=== PATIENT | female | born 1965 | race Caucasian/White ===

== ENCOUNTER 2016-05-23 09:52 | Emergency (ER) | payer BC, MEDICAID ==
[~2016-05-23] VITALS: Ht 167.6 cm; Wt 80.5 kg
[~2016-05-23 09:52] MED LIST: ALBU2.5V7 INH; ALBU8.5H INH; CITA40TA6 PO; IBUP-1724 PO; PRED10TA PO; TIOT18CA3 INH
--- OUTSIDE RECORDS SUMMARY | 2016-05-23 09:56 | XMS REPORT | Continuity of Care Document ---
Author Author [facility] Organization [facility] Address Unknown Phone Unavailable Allergies Active Description Code Type Severity Reaction Onset Reported/Identified Relationship to Patient Clinical Status Yes No Known Drug Intolerances No Known Drug Intolerances Drug Allergy Unknown N/A 11/02/2008 Yes No Allergy Information Drug Allergy N/A N/A 12/02/2012 Yes No Known Allergies Drug Allergy N/A N/A 03/10/2013 Yes No Known Drug Allergies Drug Allergy N/A N/A 03/10/2013 Yes No Known Food Allergies Food Allergy N/A N/A 03/10/2013 Yes No Known Allergies No Known Allergies Drug Allergy Unknown N/A 09/08/2013 Medications Problems Date Dx Coded Attending Type Code Diagnosis Diagnosed By 12/31/2011 Final 382.9 OTITIS MEDIA NOS 12/31/2011 Admitting 388.70 OTALGIA NOS 09/15/2012 Sinan Kang MD Final 311 DEPRESSIVE DISORDER NEC 09/15/2012 Sinan Kang MD Final 521.09 DENTAL CARIES NEC 09/15/2012 Sinan Kang MD Final 522.5 PERIAPICAL ABSCESS 09/15/2012 Sinan Kang MD Final 523.10 CHR GINGIV-PLAQUE IND 09/15/2012 Sinan Kang MD Admitting 525.9 DENTAL DISORDER NOS 11/25/2012 Robert Huff MD Admitting 719.45 JOINT PAIN-PELVIS 11/25/2012 Robert Huff MD Final 726.5 HIP ENTHESOPATHY 03/10/2013 Maxi Cabrera MD Final 070.54 CHR VH C W/O COMA 03/10/2013 Maxi Cabrera MD Final 276.1 HYPOSMOLALITY 03/10/2013 Maxi Cabrera MD Final 276.8 HYPOPOTASSEMIA 03/10/2013 Maxi Cabrera MD Final 300.00 ANXIETY STATE NOS 03/10/2013 Maxi Cabrera MD Final 305.70 AMPHETAMINE ABUSE-UNSPEC 03/10/2013 Maxi Cabrera MD Final 311 DEPRESSIVE DISORDER NEC 03/10/2013 Maxi Cabrera MD Final 570 ACUTE LIVER NECROSIS 03/10/2013 Maxi Cabrera MD Admitting 789.09 ABDOMINAL PAIN-SITE NEC 03/10/2013 Maxi Cabrera MD Final V06.6 STREP PNEUM FLU VACC 09/10/2013 Enrique LANG, Jc A 786.2 COUGH Procedures Results Test Result Range CBC W/DIFF - 09/10/13 18:10 EOSINOPHIL # 0.0 k/cumm 0.1-0.5 EOSINOPHIL % 1 % 2-4 GRANULOCYTE # 5.1 k/cumm 2.0-9.0 GRANULOCYTE % 62 % 50-75 LYMPHOCYTE # 2.7 k/cumm 1.0-4.0 LYMPHOCYTE % 33 % 20-30 MEAN CELL HGB 30.2 pg 27.0-33.0 MEAN CELL HGB CONCENTRATION 34.4 g/dL 32.0-37.0 MEAN CELL VOLUME 87.9 fl 80.0-100.0 MONOCYTE # 0.3 k/cumm 0.1-1.0 MONOCYTE % 4 % 4-6 RED BLOOD CELL 4.04 m/cumm 4.00-6.00 RED CELL DISTRIBUTION WIDTH 13.5 % 11.0- 15.6 WHITE BLOOD CELL 8.1 k/cumm 5.0-10.0 HEMOGLOBIN 12.2 gm/dL 12.0-16.0 HEMATOCRIT 35.5 % 37.0-47.0 PLATELET COUNT 204 k/cumm 150-400 METABOLIC PANEL, COMPREHN - 09/10/13 18:10 POTASSIUM 3.2 mmol/L 3.5-5.3 EST GFR (MDRD) > 60 mL/min > 59 ANION GAP 10 mmol/L 5-15 GLUCOSE 119 mg/dL 70-99 CALCIUM 8.7 mg/dL 8.5-10.1 BLOOD UREA NITROGEN 7 mg/dL 7-20 CREATININE 0.6 mg/dL 0.6-1.0 SODIUM 143 mmol/L 135-148 CHLORIDE 111 mmol/L 98-110 AST/SGOT 11 Units/L 10-37 ALT/SGPT 21 Units/L < 66 CARBON DIOXIDE 22 mmol/L 21-32 TOTAL PROTEIN 6.5 gm/dL 6.4-8.2 ALBUMIN 3.6 gm/dL 3.4-5.0 BILI TOTAL 0.8 mg/dL 0.0-1.0 ALKALINE PHOSPHATASE TOTAL 65 IU/L 45- 117 Encounters ACCT No. Visit Date/Time Discharge Status Pt. Type Provider Facility Loc./Unit Complaint [id number] 03/10/2013 15:00:00 2013 17:50:00 DIS Inpatient Deborah LANG, aMxi [facility] F4SE [id number] 12/02/2012 16:36:00 2012 23:59:59 CLS Emergency Nilay LANG, Morro Haider [facility] [id number] 11/25/2012 19:07:00 2012 20:09:00 DIS Emergency Refugio LANG, Robert [facility] [id number] 09/15/2012 11:04:00 2012 11:50:00 DIS Emergency Pearl LANG, Sinan Jhaveri [facility] [id number] 12/31/2011 15:21:00 Document Registration
--- OUTSIDE RECORDS SUMMARY | 2016-05-23 09:56 | XMS REPORT | Continuity of Care Document ---
Author Author [facility] Organization [facility] Address Unknown Phone Unavailable Care Team Providers Care Director Of Critical Care Name Role Phone CB CALDERA KRISTINA Primary Care Physician [phone] Insurance Providers Guarantor PuneetKat L Address [address] [place] [address] Email DENIED/NO TO PT PORT Payer [facility] Policy Number [id number] Subscriber's Name Kat Teixeira Relationship 18 Self Effective Date 15 Expiration Date 15 Chief Complaint and Reason for Visit Chief Complaint Cough,Fever,Flu,URI Reason for Visit [id number] Bronchitis Problems Active Problems Medical Problem Onset Date Status Acute sinusitis Unknown Acute Acute sinusitis Unknown Acute Bronchitis Unknown Acute Chronic bronchitis with acute exacerbation Unknown Acute Past Problems Medical Problem Onset Date Sciatica associated with disorder of lumbar spine Unknown Medications Current Home Medications Medication Dose Units Route Directions Days Qty Instructions Start Date Albuterol Sulfate 2.5 Mg/3 Ml Vial.neb 1 Amp Inhalation As Needed 300 11/25/15 Albuterol Sulfate (Proair Hfa 90 Mcg/Actuation) 8.5 Gm Hfa.aer.ad 2 Puff Inhalation Every 4-6 Hours as needed for Prn Orders 09/14/15 Citalopram Hydrobromide (Citalopram Hbr) 40 Mg Tablet 40 Mg Oral Bedtime 09/14/15 Ibuprofen 200 Mg Tablet 800 Mg Oral Every 8 Hours as needed for Pain 09/14/15 Prednisone 10 Mg Tablet 1 Tab Oral Give With Breakfast 30 Tablet 5 tablets daily 2 days 4 tablets daily 2 days 3 tablets daily 2 days 2 tablets daily x2 days 1 tablet daily 2 days Best taken with food 11/25/15 Tiotropium [place] (Spiriva) 1 Cap Inhaler 1 Cap Inhalation Daily 09/14/15 Social History Social History Problem Response Recorded Date/Time Onset Date Status Hx Substance Use No 11/25/2015 9:05am Not Applicable Not Applicable Hx Alcohol Use No 11/25/2015 9:05am Not Applicable Not Applicable Tobacco Usage smoke 07/11/2014 10:46am Not Applicable Not Applicable Query Response Start Date Stop Date Smoking Status Current every day smoker Hospital Discharge Instructions No hospital discharge instructions. Plan of Care Discharge Date 11/25/15 1:00pm Disposition 01 DISCHARGED HOME, SELF-CARE Condition at Discharge Stable Instructions/Education Provided Asthma -- Adult Prescriptions See Medication Section Referrals CB CALDERA AERODYNAMIC CONSULTANT Address: [address] [id number] LUIS M ADRIAN AERODYNAMIC CONSULTANT Address: [address] [place] [phone] Care Plan and Goals Physician Care Plan Problem: Acute exacerbation of chronic bronchitis, exacerbated by smoking tobacco Goal: Follow up with primary care provider Instructions: Take medications and follow care plan as discussed/written Functional Status No functional status results. Allergies, Adverse Reactions, Alerts No known allergies. Immunizations Query Response on File Recorded Date/Time Influenza Vaccine Hx NONE 11/25/15 9:05am Vital Signs Acute Vital Signs Vital Response Date/Time Temperature (Fahrenheit) 98.3 deg F (96.8 - 99.1) 11/25/2015 1:00pm Temperature (Calculated Celsius) 36.84711 degrees C (36.0 - 37.3) 11/25/2015 1:00pm Pulse Rate (adult) 84 bpm (60 - 100) 11/25/2015 1:00pm Respiratory Rate 16 breaths/min (10 - 20) 11/25/2015 1:00pm O2 Sat by Pulse Oximetry 95 % (90 - 100) 11/25/2015 1:00pm Blood Pressure 127/81 mm Hg 11/25/2015 1:00pm Height (Feet) 5 feet 11/25/2015 9:05am Height (Inches) 6.00 inches 11/25/2015 9:05am Weight (Kilograms) 78.700 kg 11/25/2015 9:05am Body Mass Index (BMI) 28.0 11/25/2015 9:05am Results Laboratory Results Test Name Result Units Flags Reference Collection Date/Time Result Date/ Time Comments White Blood Count 7.7 T/MM3 4.5-11.0 11/25/2015 10:11/25/2015 10: 56am Red Blood Count 4.21 M/MM3 4.00-5.20 11/25/2015 10:11/25/2015 10: 56am Hemoglobin 12.6 GM/DL 12-16 11/25/2015 10:11/25/2015 10:56am Hematocrit 37.1 % 36-46 11/25/2015 10:11/25/2015 10:56am Mean Corpuscular Volume 88.1 UM3 80-100 11/25/2015 10:11/25/2015 10:56am Mean Corpuscular Hemoglobin 29.9 UUG 26-34 11/25/2015 10:2015 10:56am Mean Corpuscular Hemoglobin Concent 34.0 GM/DL 31-37 11/25/2015 10:11/25/2015 10:56am RDW Standard Deviation 41.0 FL 36.9-50.2 11/25/2015 10:11/25/2015 10:56am Platelet Count 208 T/MM3 130-400 11/25/2015 10:11/25/2015 10:56am Mean Platelet Volume 10.7 UM3 9.4-12.4 11/25/2015 10:11/25/2015 10 :56am Neutrophils (%) (Auto) 73.1 % H 33-66 11/25/2015 10:11/25/2015 10: 56am Lymphocytes (%) (Auto) 19.4 % L 23-45 11/25/2015 10:11/25/2015 10: 56am Monocytes (%) (Auto) 5.2 % 0-9.0 11/25/2015 10:11/25/2015 10:56am Eosinophils (%) (Auto) 2.1 % 0-4 11/25/2015 10:11/25/2015 10:56am Basophils (%) (Auto) 0.1 % 0-2 11/25/2015 10:3311/25/2015 10:56am Immature Granulocyte % (Auto) 0.1 % 0.0-0.5 11/25/2015 10:332015 10:56am Absolute Neutrophils (auto) 5.7 T/MM3 1.8-7.7 11/25/2015 10:332015 10:56am Absolute Lymphocytes (auto) 1.5 T/MM3 1-4.8 11/25/2015 10:332015 10:56am Absolute Monocytes (auto) 0.4 T/MM3 0-0.8 11/25/2015 10:332015 10:56am Absolute Eosinophils (auto) 0.2 T/MM3 0-0.5 11/25/2015 10:332015 10:56am Absolute Basophils (auto) 0.0 T/MM3 0-0.2 11/25/2015 10:33am 2015 10:56am Absolute Immature Granulocyte (auto 0.01 T/MM3 0.00-0.03 11/25/2015 10: 3311/25/2015 10:56am Icterus Index < 2 0-7 11/25/2015 10:3311/25/2015 11:08am Chemistry Specimen Hemolysis 17 0-25 11/25/2015 10:3311/25/2015 11 :08am 0-25: Specimen Exhibited No Hemolysis. Turbidity < 20 0-20 11/25/2015 10:33am 11/25/2015 11:08am Sodium Level 145 MEQ/L H 134-144 11/25/2015 10:3311/25/2015 11:08am Potassium Level 3.8 MEQ/L 3.6-5 11/25/2015 10:3311/25/2015 11:08am Chloride Level 109 MEQ/L H 98-107 11/25/2015 10:33am 11/25/2015 11:08am Carbon Dioxide Level 26 MEQ/L 22-30 11/25/2015 10:3311/25/2015 11: 08am Anion Gap 10 MEQ/L 5-15 11/25/2015 10:33am 11/25/2015 11:08am Blood Urea Nitrogen 9.0 MG/DL 7-17 11/25/2015 10:3311/25/2015 11: 08am Creatinine 0.6 MG/DL L 0.7-1.2 11/25/2015 10:33am 11/25/2015 11:08am BUN/Creatinine Ratio 15 RATIO 6-26 11/25/2015 10:33am 11/25/2015 11: 08am Glomerular Filtration Rate Calc 106 11/25/2015 10:33am 11/25/2015 11:08am Glucose Level 85 MG/DL 65-110 11/25/2015 10:33am 11/25/2015 11:08am Calculated Osmolality 277 MOSM/KG 261-280 11/25/2015 10:33am 2015 11:08am Calcium Level 9.1 MG/DL 8.4-10.2 11/25/2015 10:33am 11/25/2015 11:08am Total Bilirubin 1.10 MG/DL 0.20-1.30 11/25/2015 10:33am 11/25/2015 11: 08am Alkaline Phosphatase 66 U/L 38-126 11/25/2015 10:33am 11/25/2015 11: 08am Total Protein 6.8 G/DL 6.3-8.2 11/25/2015 10:33am 11/25/2015 11:08am Albumin 3.9 G/DL 3.5-5.0 11/25/2015 10:33am 11/25/2015 11:08am Globulin 2.9 G/DL 2.4-3.6 11/25/2015 10:33am 11/25/2015 11:08am Albumin/Globulin Ratio 1.3 RATIO 1.1-2.2 11/25/2015 10:33am 11/25/2015 11:08am Aspartate Amino Transf (AST/SGOT) 28 U/L 14-36 11/25/2015 10:33am 11/24 11:08am Alanine Aminotransferase (ALT/SGPT) 40 U/L 9-52 11/25/2015 10:33am 11:08am Influenza Type A Antigen NEGATIVE NEGATIVE 11/25/2015 10:39am 2015 11:25am Negative for Flu A protein antigen. Assay sensitivity is 90%. Influenza Type B Antigen NEGATIVE NEGATIVE 11/25/2015 10:39am 2015 11:25am Negative for Flu B protein antigen. Assay sensitivity is 90%. Name: KAT TEIXEIRA Unit #: [id number] : 1965 Sex: F Admit Date: Loc / Svc: ED Discharge Date: DIAGNOSTIC IMAGING REPORT [id number].REASON: DYSPNEA with cough and congestion for three days PROCEDURE: CHEST 2-VIEWS UPRIGHT (PA \\T\\ LAT) Encounter: Initial COMPARISON: July 11, 2014 FINDINGS: The lungs are clear without evidence of focal abnormal airspace opacity. There is no pleural effusion or pneumothorax. The heart size, mediastinal contours and pulmonary vascularity are within normal limits. There is no significant skeletal abnormality. IMPRESSION: No acute cardiopulmonary disease. . Procedures Procedure Status Date Provider(s) X-RAY EXAM L-S SPINE 2/3 VWS Completed 09/14/15 THER/PROPH/DIAG INJ SC/IM Completed 09/14/15 EMERGENCY DEPT VISIT Completed 09/14/15 [id number]"INJECTION, KETOROLAC TROMETHAMINE, PER 15 MG" Completed 09/14/15 Encounters Encounter Location Arrival/Admit Date Discharge/Depart Date Attending Provider Departed Emergency Room [facility] 11/25/15 9:02am 11/25/15 1: 00pm LEI PUGA MD Departed Emergency Room [facility] 09/14/15 2:08pm 09/14/15 5: 40pm AMARILIS MOODY Diagnosis
--- OUTSIDE RECORDS SUMMARY | 2016-05-23 09:57 | XMS REPORT ---
Author Author [facility] - Organization Unknown Address Unknown Phone Unavailable Allergies, Adverse Reactions, Alerts * No Latex Allergy. * No IV Contrast Allergy. * No Known Drug Allergies. * No Known Allergies. Problems * Fluid Volume Low Level* Status:Active. * Infection* Status:Active. * Pain* Status:Active. Procedures No relevant procedures performed. Medication Medication reconciliation has not been performed. Results LAB--BEDSIDE TESTING from 11/25/2012 7:25 PMPregnancy Screen, Urine NPT Negative
--- OUTSIDE RECORDS SUMMARY | 2016-05-23 09:57 | XMS REPORT | Continuity of Care Document ---
Author Author [facility] Organization [facility] Address Unknown Phone Unavailable Care Team Providers Care Project Construction Assistant Manager Name Role Phone CB CALDERA APRN Primary Care Physician [phone] Insurance Providers Payer Name Policy Number Subscriber Name Relationship Roderick [employer] [id number] Kat Teixeira 19 Self Problems Medical Problems Problem Onset Date Status Acute sinusitis Unknown Active Acute sinusitis Unknown Active Medications Medication Dose Route Sig Days/Qty Instructions Order Date Discontinued Date Status Ipratropium [place] 830 Puff ORAL INH FOUR TIMES DAILY 11/21/13 Active Citalopram Hydrobromide 1 Tab PO DAILY 11/21/13 Active Trazodone HCl BEDTIME 11/21/13 Active Quetiapine Fumarate 50 Mg PO BEDTIME Take 1 tablet, by mouth, once a day at bedtime. 11/21/13 Active Social History Social History Problem Response Recorded Date/Time Smoking Status Current every day smoker 11/21/2013 12:06pm When did patient START smoking? 2013 CIGARETTES PRIOR SMOKED DRUGS 2013 12:06pm Hospital Discharge Instructions No hospital discharge instructions. Plan of Care No plan of care. Functional Status Query Response Date Recorded Physical Hygiene Self November 21, 2013 12:06pm Disabilities None November 21, 2013 12:06pm Devices Used None November 21, 2013 12:06pm Dressing Self November 21, 2013 12:06pm Ambulation Self November 21, 2013 12:06pm Diet Self November 21, 2013 12:06pm Mental Status Alert Oriented November 21, 2013 12:06pm Disabilities None November 21, 2013 12:06pm Devices Used None November 21, 2013 12:06pm Physical Hygiene Self November 21, 2013 12:06pm Dressing Self November 21, 2013 12:06pm Ambulation Self November 21, 2013 12:06pm Diet Self November 21, 2013 12:06pm Allergies, Adverse Reactions, Alerts Allergen Type Severity Reaction Status Last Updated No Known Allergies Active 11/21/13 Immunizations No immunization records. Vital Signs Acute Vital Signs Vital Response Date/Time Temperature (Fahrenheit) 97.6 deg F (96.8 - 99.1) Temperature (Calculated Celsius) 36.68711 degrees C (36.0 - 37.3) Pulse Rate (adult) 76 bpm (60 - 100) Respiratory Rate 16 breaths/min (10 - 20) O2 Sat by Pulse Oximetry 94 % (90 - 100) Blood Pressure 129/63 mm Hg Height 5 ft 6 in Weight 177 lb Body Mass Index 28.0 kg/m^2 Results No known relevant diagnostic tests, laboratory data and/or discharge summary. Procedures No known history of procedures. Encounters Encounter Location Date/Time Departed Emergency Room [facility] 11/21/13 10:29am Recent Diagnosis
[2016-05-23 10:00] VITALS: TEMP 98.9; Ht 167.6 cm; Wt 80.5 kg
--- NOTE | 2016-05-23 10:21 | NUR ---
REPORT RECEIVED AND CARE ASSUMED AT THIS TIME.
[2016-05-23] MEDS ORDERED: CETI-269 PO (10:27)
--- NOTE | 2016-05-23 10:31 | NUR ---
XRAY XRAY IN ROOM W/ PT. PORTABLE.
--- OUTSIDE RECORDS SUMMARY | 2016-05-23 10:35 | XMS REPORT | Continuity of Care Document ---
Author Author [facility] Organization [facility] Address Unknown Phone Unavailable Allergies Active Description [...] Status Pt. Type Provider Facility Loc./Unit Complaint [id number] 03/10/2013 15:00:00 2013 17:50:00 DIS Inpatient Deborah LANG, Maxi [facility] F4SE [id number] 12/02/2012 16:36:00 2012 23:59:59 CLS Emergency Nilay LANG, Morro Haider [facility] [id number] 11/25/2012 19:07:00 2012 20:09:00 DIS Emergency Refugio LANG, Robert [facility] [id number] 09/15/2012 11:04:00 2012 11:50:00 DIS Emergency Pearl LANG, Sinan Jhaveri [facility] [id number] 12/31/2011 15:21:00 Document Registration
--- OUTSIDE RECORDS SUMMARY | 2016-05-23 10:35 | XMS REPORT | Continuity of Care Document ---
Author Author [facility] Organization [facility] Address Unknown Phone Unavailable Care Team Providers Care Weaver Wire Loom Name Role Phone CB CALDERA APRN Primary Care Physician [phone] Insurance Providers Payer Name Policy Number Subscriber Name Relationship Roderick [employer] [id number] Kat Teixeira 19 Self Problems Medical Problems Problem Onset Date Status Acute sinusitis Unknown Active Acute sinusitis Unknown Active Medications Medication Dose Route Sig Days/Qty Instructions Order Date Discontinued Date Status Ipratropium [place] 830 Puff ORAL INH FOUR TIMES DAILY [...] F (96.8 - 99.1) Temperature (Calculated Celsius) 36.82477 degrees C (36.0 - 37.3) Pulse Rate [...] Encounters Encounter Location Date/Time Departed Emergency Room [facility] 11/21/13 10:29am Recent Diagnosis
--- OUTSIDE RECORDS SUMMARY | 2016-05-23 10:35 | XMS REPORT ---
Author Author [facility] - Organization Unknown Address Unknown [...]
--- NOTE | 2016-05-23 10:50 | NUR ---
DR Roseann ESPINOZA INTO SEE PT AT THIS TIME.
--- NOTE | 2016-05-23 10:53 | DI ---
Indication: ITS.REASON: right shoulder pain PROCEDURE: SHOULDER RIGHT 2-3 VIEWS: Encounter: Initial Comparison: None Findings: Three views of the right shoulder are submitted. There is no acute fracture, dislocation or malalignment identified. There are mild degenerative changes of the acromioclavicular joint. Impression: No acute osseous abnormality. .
--- NOTE | 2016-05-23 11:00 | ERPDOC ---
Departure Disposition Decision Date: May 23, 2016 Disposition Decision Time: 11:45 Disposition: 01 DISCHARGED HOME, SELF-CARE Impression Impression Impression: Primary Impression: Right shoulder strain Encounter type: initial encounter Qualified Codes: S46.911A - Strain of unspecified muscle, fascia and tendon at shoulder and upper arm level, right arm , initial encounter Severity: Moderate Condition: Stable Seen By: Physician only Referrals: CB CALDERA APRN (PCP) LUIS M ADRIAN APRN (Family) 1 Week Patient Instructions: Shoulder Pain (ED) Problems/Meds/Labs Reviewed?: Yes Medications reviewed and manag: Yes Additional Instructions: Home to rest today. Start Diclofenac for pain twice daily and use muscle relaxer as needed. May supplement with Tylenol as needed. Use ice to shoulder especially after activity. May also try using heat to shoulder. As shoulder pain improves, do some stretching exercises to help strengthen shoulder so that you do not reinjure it at work. Departure Forms: Return to Work/School Permit Return to Work/School Date: May 26, 2016 Follow up care ordered?: Yes Mental Status: Alert, Oriented Scripts Cyclobenzaprine HCl (Cyclobenzaprine HCl) 10 Mg Tablet 1 TAB PO TID Y for SPASMS, #30 TAB 0 Refills Prov: MYNOR ESPINOZA MD 05/23/16 Diclofenac Sodium (Diclofenac Sodium) 75 Mg Tablet. 1 TAB PO BID, #30 TAB 0 Refills Prov: MYNOR ESPINOZA MD 05/23/16 HPI - Upper Extremity General Chief Complaint: Upper Extremity Pain Stated Complaint: R SHOULDER PAIN Time Seen by MD: 10:25 Source: patient, RN notes reviewed, old records Exam Limitations: no limitations HPI - Upper Extremity Initial Comments This patient comes in complaining of right shoulder pain. She did a lot of carpet steam cleaning over the weekend as well as moving furniture and this morning her shoulder hurts. She took some Ibuprofen and tried to go to work this morning and could not tolerate the pain so she came to the ER for evaluation. She is right hand dominant. She has no prior history of shoulder injury. The shoulder hurts mostly on the top and it radiates up toward her neck if she abducts the arm at all, and when she tried to do her job at [email or web address] , radiated down toward her elbow as well. Occurred At: home Onset/Timing: Gradual Duration: 12-24 hrs Pain/Severity Scale: Now & Worst: 8/10 Pain/Injury Location: right shoulder Method of Injury/Context: other (overuse over the weekend) Modifying Factors: IMPROVES WITH: pain medication, WORSE WITH: movement Hx of Similar Symptoms: No Quality: aching, sharpness Allergies: Coded Allergies: No Known Allergies (Unverified , 09/14/15) Past History Past Medical History Metabolic: diabetes, hypothyroidism ENMT: nosebleeds Hx Echocardiogram: No Respiratory: asthma, other (lung damage from "inhaled chemicals.") GI: gallbladder disease Infectious: hepatitis C Surgical History General: other (sinus surgery age 5) Reproductive/: Family History Family PMH: FOUND: [place], cancer, diabetes Social History Smoking Status: Unknown if ever smoked Substance Use Type: does not use Alcohol Intake: none Record Review Pertinent history updated: Yes Review of Systems Constitutional Constitutional: DENIES: appetite decrease, chills, fever, weakness Eyes General: DENIES: pain Lids/Accessories: DENIES: erythema Vision: DENIES: blurring ENMT Ears: DENIES: pain Hearing: DENIES: hearing loss Balance: DENIES: vertigo Sinuses: DENIES: congestion, rhinorrhea Mouth/Throat: DENIES: sore throat Teeth: DENIES: pain Cardiovascular Cardiac: DENIES: chest pain Rhythm/Rate: DENIES: palpitations Vascular: DENIES: pedal edema, unilateral swelling Pulmonary Respiratory: DENIES: cough, dyspnea, sputum GI Upper Abdomen: DENIES: heartburn/indigestion, nausea, vomiting Lower Abdomen: DENIES: blood in stool, constipation, diarrhea General: DENIES: dysuria, hematuria Female: LMP (04/18/16) Musculoskeletal General: pain, see HPI Integumentary Skin: DENIES: itching, rash Neurological General: DENIES: headache, memory disturbances, seizures, syncope Psychiatric Psychiatric: DENIES: anxiety, depression Endocrine Endocrine: DENIES: heat/cold intolerance Hematologic/Lymphatic Hematologic/Lymphatic: DENIES: anemia, easy bruising Allergic/Immunological Allergic/Immunoligical: DENIES: hives All other Systems All Other Systems: Reviewed and Negative Physical Exam General General Nourishment: well nourished, well developed, appears stated age, no acute distress, adult General Body Habitus: well groomed Vitals and Pain First Documented Vital Signs Date Time Temp Pulse Resp B/P Pulse Ox O2 Delivery O2 Flow Rate FiO2 05/23/16 10:00 98.9 84 20 112/60 96 Room Air Weight: Kilograms: Height (feet): 5 Height (inches): 6.00 Triage Pain Scale: RN VS reviewed by Provider: Yes Normal Exams: Head: Normocephalic w/o trauma Eyes: Pupils are PERRLA w/ EOMI, No scleral icterus, irritation, or foreign bodies noted ENMT: No facial trauma, nasal exudates, pharyngeal erythema, or exudates are noted Dental: No fractured, loose, or missing teeth noted Neck: Full range of motion, without adenopathy, JVD, bruits or thyromegaly Chest/Resp: Clear all chamberlain, with good airflow, and symmetry bilaterally CV: Regular rate and rhythm, without murmur or gallop, Pulses 2+ all extremities, capillary refill, <2 seconds all ext., no pedal edema noted Abdomen: Bowel sounds positive, soft, non-tender, non-distended, no hepatosplenomegaly, masses or bruits noted Integumentary: No rashes, hives, or bruising noted, hair and nails, without abnormality Neurologic: Patient is alert, and oriented, cranial nerves, motor/sensory/ cerebellar, exams w/o gross deficits, to observation Psychiatric: Patient exhibits, appropriate attention, emotion and affect Musculoskeletal (brief) Musculoskeletal Brief: FOUND: spasm, tenderness Comments mild spasm of trapezius on the right with associated tenderness over the superior joint line of the shoulder. No bicipital tendon tenderness, no anterior to posterior shoulder pain to palpation. Differential Diagnoses Considering: Contusion, Sprain, Strain Progress Results/Orders Orders Procedure Category Date Status Time Shoulder Right 2-3 RAD 05/23/16 Resulted Views Ketorolac (Toradol) PHA 05/23/16 Complete 12:15 Orphenadrine Sr PHA 05/23/16 Complete (Norflex) 12:15 Medications Current ED Medications Ketorolac Tromethamine (Toradol) 60 mg O ONCE IM Last administered on 12:12; Start 05/23/16 at 12:15; Stop 05/23/16 at 12:16; Status DC Orphenadrine Citrate (Norflex) 100 mg O ONCE PO Last administered on 12:11; Start 05/23/16 at 12:15; Stop 05/23/16 at 12:16; Status DC Progress Progress Patient given some Toradol in the ER as well as norflex. Will have her take NSAID and muscle relaxer as outpatient. Work note written for two days. Xray Xray : Xray: Shoulder R Interpretation: Normal, Reviewed Written Report MYNOR ESPINOZA MD May 23, 2016 11:00
--- NOTE | 2016-05-23 12:00 | NUR ---
STATUS PT REPORTS SHE DROVE SELF TO ER BUT WILL CALL FOR RIDE RIGHT NOW.
[2016-05-23] MEDS ORDERED: CYCL-375 PO (12:07)
[2016-05-23] MEDS ORDERED: DICL75TA5 PO (12:07)
--- NOTE | 2016-05-23 12:07 | NUR ---
REPORT TO OVIDIO VAN FOR CONT CARE.
--- NOTE | 2016-05-23 12:11 | NUR ---
PO MEDS NORFLEX PO CHARTED W/ PT TOLERANCE.
[2016-05-23] MEDS ORDERED: ORPHENADRINE SR 100 MG TABLET PO ONE (12:15)
[2016-05-23] MEDS ORDERED: KETOROLAC 60mg/2ml INJECTION IM ONE (12:15)
--- NOTE | 2016-05-23 12:40 | NUR ---
STATUS PT REPORTS PAIN REDUCED TO 5/10.
[2016-05-23 12:47] VITALS: BP 120/74; PULSE 87; RESP 18; O2SAT 98
--- NOTE | 2016-05-23 12:47 | NUR ---
DISCHARGE PT GIVEN INSTRUCTIONS FOR CONT CARE SHOULDER PAIN W/ RX X2 DICLOFENAC AND FLEXERIL W/ WORK NOTE. PT VERBALIZED UNDERSTANDING AND SIGNED FORM, PT LEFT ER ALERT, AMBULATORY W/O ASSIST, VS CHARTED AND IN NO ACUTE DISTRESS
== END 2016-05-23 12:39 | disposition home or self-care (01) ==
LOC: ED 09:52
DX: S46.911A Strain of unspecified muscle, fascia and tendon at shoulder and upper arm level, right arm, initial encounter (principal); X50.3XXA Overexertion from repetitive movements, initial encounter; Y93.E5 Activity, floor mopping and cleaning; Y92.009 Unspecified place in unspecified non-institutional (private) residence as the place of occurrence of the external cause; Y99.8 Other external cause status
CPT/HCPCS: 73030; 96372; 99283; J1885